=== PATIENT | male | born 1980 | race Caucasian/White ===

== ENCOUNTER → 2021-02-11 09:48 | Outpatient (BNVA) | payer BC, SELFPAY | PROVIDERS: PCP Pediatrics; Visit Provider Internal Medicine Rheumatology | DX: L40.50 Arthropathic psoriasis, unspecified (principal); L40.0 Psoriasis vulgaris; Z79.899 Other long term (current) drug therapy; R76.8 Other specified abnormal immunological findings in serum; M54.89 Other dorsalgia | CPT/HCPCS: 99204 ==

== ENCOUNTER 2021-02-11 11:37 | Outpatient (CLI) | payer BC, SELFPAY ==
--- NOTE | 2021-02-11 11:50 | XR_ITS ---
WS: [id number] Left hand, 3 views, 02/11/2021 Clinical Data: Z79.899 - Other [facility] (current[facility] drug therapy Comparison: None. Findings: No fractures or dislocations are seen. The soft tissues are unremarkable. The joint spaces are normal No periarticular demineralization or calcifications are seen. XR/XR hand LT min 3V* [id number] Impression: Negative left hand.
--- NOTE | 2021-02-11 11:50 | XR_ITS ---
WS: [id number] Right hand, 3 views, 02/11/2021 Clinical Data: Z79.899 - Other care home (current) drug therapy Comparison: None. Findings: No fractures or dislocations are seen. The soft tissues are unremarkable. The joint space s are normal No periarticular demineralization or calcifications are seen. XR/XR hand RT min 3V* [id number] Impression: Negative right hand.
--- NOTE | 2021-02-11 11:50 | XR_ITS ---
WS: [id number] Pelvis, AP view, 02/11/2021 Clinical Data: L40.50 - Arthropathic psoriasis, unspecified Comparison: None. Findings: No fractures or dislocations are seen. The SI joints and pubic symphysis are intact. The soft tissues are not remarkable. The hips are normal. XR/XR pelvis 1-2V* [id number] Impression: Negative AP pelvis.
--- NOTE | 2021-02-11 11:50 | XR_ITS ---
WS: [id number] Left foot, 3 views, 02/11/2021 Clinical Data: Z79.899 - Other [facility] (current) drug therapy Comparison: None. Findings: No fractures or dislocations are seen. No bone destruction or erosion is noted. The joint spaces and soft tissues are normal. No periarticular demineralization or calcifications are seen. XR/XR foot LT min 3V* [id number] Impression: Negative left foot.
--- NOTE | 2021-02-11 11:50 | XR_ITS ---
WS: [id number] Thoracic spine, AP and lateral views, 02/11/2021 Clinical Data: L40.50 - Arthropathic psoriasis, unspecified Comparison: None. Findings: No compression fractures are seen. The disc heights are normal. The paravertebral regions are normal. XR/XR thoracic spine 3V* [id number] Impression: Negative thoracic spine.
--- NOTE | 2021-02-11 11:50 | XR_ITS ---
WS: [id number] LUMBAR SPINE: 3 VIEWS TECHNIQUE: AP, lateral and L5-S1 spot. HISTORY: L40.50 - Arthropathic psoriasis, unspecified COMPARISON: None available. Lumbar vertebra are normally aligned. Mild disc space narrowing and small osteophytes at L5-S1. Mild facet joint arthritis at L4-5 and L5-S 1. SI joints are symmetric bilaterally. No soft tissue abnormalities. XR/XR lumbar spine 2-3V* [id number] IMPRESSION: Mild degenerative disc disease at L5-S1.
--- NOTE | 2021-02-11 11:50 | XR_ITS ---
WS: [id number] Right foot, 3 views, 02/11/2021 Clinical Data: Z79.899 - Other shelter (current) drug therapy Comparison: None. Findings: No fractures or dislocations are seen. No bone destruction or erosion is noted. The joint spaces and soft tissues are normal. No periarticular demineralization or calcifications are seen. XR/XR foot RT min 3V* [id number] Impression: Negative right foot.
== END 2021-02-11 11:38 | disposition home or self-care (01) ==
LOC: RAD 11:46
PROVIDERS: PCP Pediatrics; Visit Provider Internal Medicine Rheumatology
DX: L40.50 Arthropathic psoriasis, unspecified (principal); L40.9 Psoriasis, unspecified; Z79.899 Other long term (current) drug therapy; M54.9 Dorsalgia, unspecified
CPT/HCPCS: 72072; 72100; 72170; 73130; 73630

== ENCOUNTER → 2021-03-25 08:57 | Outpatient (BNVA) | payer BC, SELFPAY | PROVIDERS: PCP Pediatrics; Visit Provider Internal Medicine Rheumatology | DX: L40.50 Arthropathic psoriasis, unspecified (principal); L40.0 Psoriasis vulgaris; Z79.899 Other long term (current) drug therapy; R76.8 Other specified abnormal immunological findings in serum; M47.894 Other spondylosis, thoracic region | CPT/HCPCS: 99214 ==

== ENCOUNTER 2021-03-25 10:00 | Outpatient (CLI) | payer BC, SELFPAY ==
[2021-03-25 10:40] LABS: Basophils % 0.6 %; Eosinophils # 0.3 10^3/uL (0.0-0.8); Hemoglobin 14.5 g/dL (11.7-16.6); Lymphocytes # 1.5 10^3/uL (0.8-4.8); Lymphocytes % 22.9 %; Mean Corpuscular Hemoglobin 29.5 pg (28.0-34.0); Mean Corpuscular Volume 89.6 fL (80-94); Mean Platelet Volume 10.7 fL (7.4-10.4); Monocytes # 0.5 10^3/uL (0.2-0.9); Neutrophils # 4.19 10^3/uL (1.8-7.7); Neutrophils % 63.2 %; Nucleated Red Blood Cells % 0 %; Platelet Count 215 10^3/cmm (130-400); Red Blood Count 4.91 10^6/uL (4.1-5.3); Red Cell Distribution Width 11.9 % (12.1-15.1); White Blood Count 6.6 10^3/uL (4.0-10.0)
[2021-03-25 11:02] LABS: Alanine Aminotransferase 16 U/L (0-41); Albumin Level 4.4 g/dL (3.5-5.2); Alkaline Phosphatase 59 IU/L (40-130); Aspartate Amino Transferase 28 U/L (0-40); C Reactive Protein 1.7 mg/L (0.0-4.9); Globulin 3.1 g/dL (1.3-4.6); Glomerular Filtration Rate 93.9 mL/min (90-130); Magnesium 2.1 mg/dL (1.7-2.3); Total Bilirubin 0.3 mg/dL (0.15-1.2); Total Protein 7.5 g/dL (6.6-8.7)
[2021-03-26 14:08] LABS: CENTROMERE B ANTIBODY <1.0 NEG AI (<1.0 NEG); JO-1 ANTIBODY <1.0 NEG AI (<1.0 NEG); RNP ANTIBODY <1.0 NEG AI (<1.0 NEG); SCL-70 ANTIBODY <1.0 NEG AI (<1.0 NEG); SJOGREN'S ANTIBODY (SS-A) <1.0 NEG AI (<1.0 NEG); SM ANTIBODY <1.0 NEG AI (<1.0 NEG); SS-B <1.0 NEG AI (<1.0 NEG)
[2021-03-26 16:23] LABS: THYROID PEROXIDASE ANTIBODIES <1 IU/mL (<9)
[2021-03-27 10:47] LABS: COMPLEMENT COMPONENT C3C 118 mg/dL (82-185); COMPLEMENT COMPONENT C4C 20 mg/dL (15-53)
[2021-03-27 13:02] LABS: COMPLEMENT, TOTAL (CH50) 52 U/mL (31-60)
[2021-03-27 15:52] LABS: ANA PATTERN Nuclear, Speckled; ANA SCREEN, IFA POSITIVE (NEGATIVE)
[2021-04-02 10:42] LABS: DNA AB (DS) CRITHIDIA,IFA NEGATIVE (NEGATIVE)
== END 2021-03-25 10:01 | disposition home or self-care (01) ==
PROVIDERS: PCP Pediatrics; Visit Provider Internal Medicine Rheumatology
DX: L40.0 Psoriasis vulgaris (principal); Z79.899 Other long term (current) drug therapy; L40.50 Arthropathic psoriasis, unspecified; L40.9 Psoriasis, unspecified; R25.3 Fasciculation; R76.8 Other specified abnormal immunological findings in serum
CPT/HCPCS: 36415; 80076; 82310; 82565; 83735; 84100; 85025; 86140; 86160; 86162; 86235; 86255; 86376

== ENCOUNTER → 2021-06-17 09:02 | Outpatient (BNVA) | payer BC, SELFPAY | PROVIDERS: PCP Pediatrics; Visit Provider Internal Medicine Rheumatology | DX: L40.50 Arthropathic psoriasis, unspecified (principal); Z71.89 Other specified counseling; Z79.899 Other long term (current) drug therapy | CPT/HCPCS: 36415; 80076; 82565; 85025; 86140 ==

== ENCOUNTER → 2021-06-24 10:18 | Outpatient (BNVA) | payer BC, SELFPAY | PROVIDERS: PCP Pediatrics; Visit Provider Internal Medicine Rheumatology | DX: L40.50 Arthropathic psoriasis, unspecified (principal); L40.0 Psoriasis vulgaris; Z79.899 Other long term (current) drug therapy; M47.894 Other spondylosis, thoracic region; Z71.89 Other specified counseling | CPT/HCPCS: 99214 ==